=== PATIENT | female | born 1995 | race Two or more races ===

== ENCOUNTER 2024-07-10 17:57 | Inpatient (IN) | payer BC ==
[~2024-07-10] VITALS: Ht 170.2 cm; Wt 83.0 kg
[2024-07-10 18:02] VITALS: O2SAT 100
[2024-07-10 19:18] LABS: HEMATOCRIT 27.6 % (36.0-45.00); HEMOGLOBIN 9.3 g/dL (12.0-15.00); MEAN CELL VOLUME 89.2 fL (80.00-100.00); MEAN CORPUSCULAR HEMOGLOBIN 30.2 pg (27.00-32.0); MEAN CORPUSCULAR HGB CONC 33.8 g/dl (32.0-36.0); PLATELET COUNT 263 K/uL (150-450); RED BLOOD COUNT 3.09 M/uL (4.00-6.00); RED CELL DISTRIBUTION WIDTH 13.5 % (11.5-14.5)
[2024-07-10] MEDS ORDERED: METHYLERGONOVINE MALEATE 0.2 MG TABLET PO SCH (22:54)
[2024-07-10] MEDS ORDERED: NAPROXEN 500 MG TABLET PO PRN (23:00)
[2024-07-11] MEDS ORDERED: CEFOXITIN SODIUM 2,000 MG in 0.9 % SODIUM CHLORIDE 100 ML IV SCH
[2024-07-11 01:59] LABS: INR 1.06; PARTIAL THROMBOPLASTIN TIME 23.8 SECONDS (22.0-34.0); PROTHROMBIN TIME 11.5 SECONDS (9.0-11.5)
[2024-07-11 02:30] VITALS: BP 111/71
[2024-07-11 08:00] VITALS: BP 91/55
[2024-07-11] MEDS ORDERED: METHYLERGONOVINE MALEATE 0.2 MG TABLET PO SCH (09:00)
[2024-07-11 09:44] LABS: HEMATOCRIT 26.1 % (36.0-45.00); MEAN CELL VOLUME 86.7 fL (80.00-100.00); MEAN CORPUSCULAR HEMOGLOBIN 29.9 pg (27.00-32.0); MEAN CORPUSCULAR HGB CONC 34.4 g/dl (32.0-36.0); PLATELET COUNT 209 K/uL (150-450); RED BLOOD COUNT 3.01 M/uL (4.00-6.00); RED CELL DISTRIBUTION WIDTH 14.7 % (11.5-14.5)
[2024-07-11 16:49] LABS: HEMATOCRIT 28.3 % (36.0-45.00); HEMOGLOBIN 9.7 g/dL (12.0-15.00); MEAN CELL VOLUME 86.1 fL (80.00-100.00); MEAN CORPUSCULAR HEMOGLOBIN 29.5 pg (27.00-32.0); MEAN CORPUSCULAR HGB CONC 34.3 g/dl (32.0-36.0); PLATELET COUNT 203 K/uL (150-450); RED BLOOD COUNT 3.28 M/uL (4.00-6.00); RED CELL DISTRIBUTION WIDTH 15.1 % (11.5-14.5)
[2024-07-11 17:00] VITALS: BP 82/66
[2024-07-11 23:49] VITALS: BP 85/66
[2024-07-12 08:04] VITALS: BP 100/60
[2024-07-12] MEDS ORDERED: MAXFE CAPLET1 EAC1 PO (15:04)
[2024-07-12] MEDS ORDERED: DOXYCYCLINE HY100 M2 PO (15:04)
== END 2024-07-12 15:13 | disposition home or self-care (01) | DRG 779 ==
LOC: ER 17:57 → OB/GYN 22:53
PROVIDERS: Emergency Medicine; ADMIT Obstetrics & Gynecology; ATTEND Obstetrics & Gynecology
PROC: BU4CZZZ Ultrasonography of Uterus and Ovaries (ICD-10-PCS; principal; 2024-07-10)
PROC: 30233N1 Transfusion of Nonautologous Red Blood Cells into Peripheral Vein, Percutaneous Approach (ICD-10-PCS; 2024-07-11)
DX: O03.6 Delayed or excessive hemorrhage following complete or unspecified spontaneous abortion (principal); D50.0 Iron deficiency anemia secondary to blood loss (chronic)